=== PATIENT | female | born 1985 | race Caucasian/White ===

== ENCOUNTER 2016-10-16 10:33 | Outpatient (CLI) | payer OTHER ==
[2016-10-16] VITALS (10 sets, daily range): BP systolic 122–162; BP diastolic 79–98
[~2016-10-16] VITALS: Ht 165.1 cm; Wt 80.7 kg
[~2016-10-16 10:33] MED LIST: Keflex PO
[2016-10-16 11:54] LABS: EOSINOPHIL (%) 0.6 % (0-5); EOSINOPHIL COUNT 0.1 K/uL (0-0.3); HEMATOCRIT 34.8 % (36.0-46.0); IMMATURE GRANULOCYTE (%) 0.8 % (0.0-0.7); IMMATURE GRANULOCYTE COUNT 0.1 K/uL; INSTRUMENT ABS NEUTROPHIL CT 7.1 K/uL; LYMPHOCYTE COUNT 1.5 K/uL (1.0-2.8); MCH 34.1 PG (29.0-34.0); MCHC 35.1 G/DL (30.0-36.0); MCV 97.2 FL (83-99); MEAN PLAT.VOLUME 10.2 uM^3 (9.5-12.4); MONOCYTE (%) 5.6 % (3-12); MONOCYTE COUNT 0.5 K/uL (0-0.8); NEUTROPHIL (%) 76.5 % (45-76); NEUTROPHIL COUNT 7.1 K/uL (1.8-6.4); PLATELET COUNT 257 K/uL (156-360); RBC DIS.WIDTH-SD 45.2 % (39-53); RED BLOOD COUNT 3.58 M/uL (3.80-5.20); WHITE BLOOD COUNT 9.3 K/uL (4.1-10.2)
[2016-10-16 12:28] LABS: ALKALINE PHOSPHATASE 116 IU/L (3-129); ANION GAP 12 MEQ/L (2-14); CHLORIDE 104 MEQ/L (99-109); GFR ESTIMATE (CALCULATED) > 59 mL/min/; GLUCOSE 107 mg/dL (70-99); POTASSIUM 3.9 MEQ/L (3.7-5.4); SAMPLE HEMOLYSIS CHECK 0; SAMPLE ICTERIC CHECK 0; SAMPLE LIPEMIA CHECK 0; SODIUM 137 MEQ/L (136-147); TOTAL BILIRUBIN 0.5 MG/DL (0.0-1.0); UREA NITROGEN (BUN) 9 mg/dL (9-23)
[2016-10-17] VITALS (9 sets, daily range): BP systolic 127–148; BP diastolic 82–95
== END 2016-10-17 10:04 | disposition home or self-care (01) ==
LOC: LDRP-OP → 2WEST 10:34 → LDRP-OP 12-06 20:45
PROVIDERS: Midwife
DX: O26.893 Other specified pregnancy related conditions, third trimester (principal); R03.0 Elevated blood-pressure reading, without diagnosis of hypertension; O34.03 Maternal care for unspecified congenital malformation of uterus, third trimester; Q51.3 Bicornate uterus; Z3A.37 37 weeks gestation of pregnancy; O34.219 Maternal care for unspecified type scar from previous cesarean delivery
CPT/HCPCS: 59025; 76818; 80053; 82570; 84156; 85025; 86870; 86900; 86901; 86905; 86920; G0378; J7120

== ENCOUNTER 2016-10-29 10:43 | Inpatient (IN) | payer OTHER ==
[~2016-10-29] VITALS: Ht 165.1 cm; Wt 81.8 kg
[~2016-10-29 10:43] MED LIST changes: +LO-DOSE ASPIRIN81 M2 PO; +PRENATAL TABLE1 EAC3 PO; +TUMS500 MG PO
[2016-10-29 11:27] VITALS: BP 145/97
[2016-10-29 11:56] VITALS: BP 151/86
[2016-10-29 12:26] VITALS: BP 130/84
[2016-10-29 12:49] LABS: EOSINOPHIL (%) 0.3 % (0-5); HEMATOCRIT 34.1 % (36.0-46.0); IMMATURE GRANULOCYTE (%) 0.7 % (0.0-0.7); IMMATURE GRANULOCYTE COUNT 0.1 K/uL; INSTRUMENT ABS NEUTROPHIL CT 7.7 K/uL; LYMPHOCYTE COUNT 1.4 K/uL (1.0-2.8); MCH 33.6 PG (29.0-34.0); MCHC 34.9 G/DL (30.0-36.0); MCV 96.3 FL (83-99); MEAN PLAT.VOLUME 9.8 uM^3 (9.5-12.4); MONOCYTE (%) 6.1 % (3-12); MONOCYTE COUNT 0.6 K/uL (0-0.8); NEUTROPHIL (%) 78.6 % (45-76); NEUTROPHIL COUNT 7.7 K/uL (1.8-6.4); PLATELET COUNT 245 K/uL (156-360); RBC DIS.WIDTH-CV 12.8 % (11.8-14.6); RBC DIS.WIDTH-SD 44.9 % (39-53); RED BLOOD COUNT 3.54 M/uL (3.80-5.20); WHITE BLOOD COUNT 9.8 K/uL (4.1-10.2)
[2016-10-29 15:11] VITALS: BP 130/79
[2016-10-29] MEDS ORDERED: IBUPROFEN800 MG PO (17:12)
[2016-10-29] MEDS ORDERED: ENDOCET 5-3251 EACH PO (17:12)
[2016-10-29 18:36] VITALS: BP 142/85
[2016-10-30] VITALS: BP 128/76
[2016-10-30 07:33] VITALS: BP 125/70
[2016-10-30 07:41] LABS: EOSINOPHIL (%) 0.2 % (0-5); HEMATOCRIT 29.7 % (36.0-46.0); IMMATURE GRANULOCYTE (%) 0.8 % (0.0-0.7); IMMATURE GRANULOCYTE COUNT 0.1 K/uL; INSTRUMENT ABS NEUTROPHIL CT 10.8 K/uL; LYMPHOCYTE COUNT 1.5 K/uL (1.0-2.8); MCH 33.3 PG (29.0-34.0); MCHC 34.3 G/DL (30.0-36.0); MCV 97.1 FL (83-99); MEAN PLAT.VOLUME 10.2 uM^3 (9.5-12.4); MONOCYTE (%) 6.3 % (3-12); MONOCYTE COUNT 0.8 K/uL (0-0.8); NEUTROPHIL (%) 81.2 % (45-76); NEUTROPHIL COUNT 10.8 K/uL (1.8-6.4); PLATELET COUNT 216 K/uL (156-360); RBC DIS.WIDTH-SD 45.2 % (39-53); RED BLOOD COUNT 3.06 M/uL (3.80-5.20)
[2016-10-30 07:42] LABS: WHITE BLOOD COUNT 13.3 K/uL (4.1-10.2)
[2016-10-30 11:23] VITALS: BP 128/82
[2016-10-30 16:23] VITALS: BP 141/82
[2016-10-30 19:40] VITALS: BP 138/90
[2016-10-30 22:40] VITALS: BP 135/74
[2016-10-31 04:30] VITALS: BP 132/88
[2016-10-31 08:59] VITALS: BP 134/85
[2016-10-31 14:18] VITALS: BP 159/86
[2016-10-31 19:00] VITALS: BP 155/98
[2016-10-31 23:39] VITALS: BP 158/103
[2016-11-01 03:00] VITALS: BP 162/99
[2016-11-01 07:24] VITALS: BP 160/94
[2016-11-01] MEDS ORDERED: LABETALOL HCL200 MG PO (10:14)
[2016-11-01 10:47] LABS: HEMATOCRIT 30.3 % (36.0-46.0); MCH 34.4 PG (29.0-34.0); MCHC 34.3 G/DL (30.0-36.0); MCV 100.3 FL (83-99); MEAN PLAT.VOLUME 9.7 uM^3 (9.5-12.4); PLATELET COUNT 265 K/uL (156-360); RBC DIS.WIDTH-CV 13.2 % (11.8-14.6); RBC DIS.WIDTH-SD 47.8 % (39-53); RED BLOOD COUNT 3.02 M/uL (3.80-5.20); WHITE BLOOD COUNT 10.9 K/uL (4.1-10.2)
[2016-11-01 11:00] VITALS: BP 151/103
[2016-11-01 11:12] LABS: ALKALINE PHOSPHATASE 96 IU/L (3-129); ANION GAP 10 MEQ/L (2-14); CHLORIDE 102 MEQ/L (99-109); GFR ESTIMATE (CALCULATED) > 59 mL/min/; GLUCOSE 93 mg/dL (70-99); POTASSIUM 4.1 MEQ/L (3.7-5.4); SAMPLE HEMOLYSIS CHECK 0; SAMPLE ICTERIC CHECK 0; SAMPLE LIPEMIA CHECK 0; SODIUM 139 MEQ/L (136-147); TOTAL BILIRUBIN 0.6 MG/DL (0.0-1.0); UREA NITROGEN (BUN) 6 mg/dL (9-23)
[2016-11-01 12:36] VITALS: BP 141/81
[2016-11-01 15:32] VITALS: BP 134/84
[2016-11-01] MEDS ORDERED: MOTRIN800 MG PO (15:41)
== END 2016-11-01 19:00 | disposition home or self-care (01) | DRG 765 ==
LOC: LDRP-OP 10:43 → 2WEST 10:44 → LDRP-OP 12-06 14:04
PROVIDERS: Obstetrics & Gynecology
PROC: 10D00Z1 Extraction of Products of Conception, Low, Open Approach (ICD-10-PCS; principal; 2016-10-29)
DX: O34.219 Maternal care for unspecified type scar from previous cesarean delivery (principal); O13.4 Gestational [pregnancy-induced] hypertension without significant proteinuria, complicating childbirth; D62 Acute posthemorrhagic anemia; O99.02 Anemia complicating childbirth; Z3A.38 38 weeks gestation of pregnancy; Z37.0 Single live birth; O99.824 Streptococcus B carrier state complicating childbirth; O34.03 Maternal care for unspecified congenital malformation of uterus, third trimester; Q51.3 Bicornate uterus
CPT/HCPCS: 80053; 85025; 85027; 86870; 86900; 86901; 86905; 86920; J0690; J1170; J2175; J2250; J2274; J2405; J3010; J7120